=== PATIENT | female | born 1965 | race Caucasian/White ===

== ENCOUNTER → 2017-04-14 | Outpatient (CLI) | payer OTHER ==
--- NOTE | 2017-04-14 09:13 | WOMENS IMAGING REPORT ---
EXAM DESCRIPTION: BILAT SCREENING MAMMO W/CAD COMPLETED DATE/TIME: 04/14/2017 8:50 am REASON FOR STUDY: SCREENING MAMMO Z12.31 ENCNTR SCREEN MAMMOGRAM FOR MALIGNANT NEOPLASM OF BETTINA COMPARISON: 01/01/2014 TECHNIQUE: Standard craniocaudal and mediolateral oblique views of each breast recorded using digita l acquisition. LIMITATIONS: None. FINDINGS: No masses, calcifications or architectural distortion. No areas of suspicion. Read with the assistance of CAD. .[facility] - R2 Cenova Version 1.3 .[facility] - R2 Cenova Version 1.3 .[facility] - R2 Cenova Version 2.4 .[facility] [place] R2 Cenova Version 2.4 .[facility] - R2 Spray Machine Operator Version 9.2 IMPRESSION: NORMAL MAMMOGRAM. BIRADS 1. BREAST DENSITY: d. The breasts are extremely dense, which lowers the sensitivity of mammography. BIRAD: 1 NEGATIVE RECOMMENDATION: ROUTINE SCREENING COMMENT: The patient has been notified of the results by letter per SA requirements. Additional no tification policies are in place for contacting patient with suspicious or incomplete findings. Quality ID #[id number]: The [employer] recommends an annual screening mammogram for women aged 40 years or over. This facility utilizes a reminder system to ensure that all patients receive reminder letters, and/or direct phone calls for appointments. This includes reminders for routine scr eening mammograms, diagnostic mammograms, or other Breast Imaging Interventions when appropriate. Th is patient will be placed in the appropriate reminder system. The [employer] (ACR) has developed recommendations for screening MRI of the breast s in certain patient populations, to be used in conjunction with mammography. Breast MRI surveillanc e may be appropriate for women with more than 20% lifetime risk of developing breast cancer as deter mined by genetic testing, significant family history of the disease, or history of mantle radiation f or Hodgkins Disease. ACR Practice Guidelines 2008. TECHNICAL DOCUMENTATION: FINDING NUMBER: (1) ASSESSMENT: (1) JOB ID: [id number] [employer]- All Rights Reserved
== END ==
LOC: WI 08:22
DX: Z12.31 Encounter for screening mammogram for malignant neoplasm of breast (principal)
CPT/HCPCS: 77067; G0202

== ENCOUNTER 2018-10-04 11:20 | Inpatient (IN) | payer SELFPAY ==
[2018-10-04] MEDS ORDERED: METHYLPREDNISOLONE INJ 125 MG/2 ML SDV IV ONE (11:48)
[2018-10-04] MEDS ORDERED: IPRATROPIUM/ALBUTEROL 0.5-2.5 MG/3 ML AMPUL NEB ONE (11:48)
[2018-10-04] MEDS ORDERED: NORMAL SALINE 1000 ML 1,000 ML IV ONE (11:49)
--- NOTE | 2018-10-04 11:51 | ER Document Report ---
ED Medical Screen (RME) - General Chief Complaint: Chest Pain Stated Complaint: CHEST PAIN Time Seen by Provider: 10/04/18 11:48 [facility]: [facility] [Primary [facility] Provider] - Follow up as needed Notes: Chief complaint: Difficulty breathing History of complain:( obtained from----patient) 53 years old female, with a history of ulcerative colitis, hypertension, diabetes, smoking, presents today with 3-4-day history of generalized body aches and pain feverish coughig and general malaise. No nausea vomiting. PHYSICAL EXAMINATION: GENERAL: Mild to moderate acute distress. HEAD: Atraumatic, normocephalic. EYES: Bilateral eyelid edema left is more than the right ENT: Nares patent, oropharynx clear without exudates. Moist mucous membranes. NECK: Normal range of motion, supple without lymphadenopathy LUNGS: Bilaterally diminished breath sounds could not appreciate any wheezing or rales HEART: Regular rate and rhythm without murmurs ABDOMEN: Soft, nontender, nondistended abdomen. No guarding, no rebound. No masses appreciated. SKIN: Warm, Dry, normal turgor, no rashes or lesions noted. Dictation was performed using [email or web address] voice recognition software TRAVEL OUTSIDE OF THE [place] IN LAST 30 DAYS: No - Related Data Allergies/Adverse Reactions: No Known Allergies Allergy (Verified 10/04/18 11:21) Past Medical History - Past Medical History Cardiac Medical History: Reports: Hx Coronary Artery Disease, Hx Heart Attack Denies: Hx Hypertension Pulmonary Medical History: Denies: Hx Asthma, Hx Bronchitis, Hx COPD, Hx Pneumonia Neurological Medical History: Denies: Hx Cerebrovascular Accident, Hx Seizures Endocrine Medical History: Reports: Hx Diabetes Mellitus Type 1 Musculoskeltal Medical History: Denies Hx Arthritis Past Surgical History: Reports: Hx Hysterectomy - Immunizations Hx Diphtheria, Pertussis, Tetanus Vaccination: Yes Physical Exam - Vital signs Vitals: Temp Pulse Resp BP Pulse Ox 98.3 F 96 18 130/56 H 93 10/04/18 11:35 10/04/18 11:35 10/04/18 11:35 10/04/18 11:35 10/04/18 11:35 Course - Vital Signs Vital signs: Temp Pulse Resp BP Pulse Ox 98.3 F 96 18 130/56 H 93 10/04/18 11:35 10/04/18 11:35 10/04/18 11:35 10/04/18 11:35 10/04/18 11:35 Doctor's Discharge - Discharge Referrals: [facility] [Primary Care Provider] - Follow up as needed
[2018-10-04] MEDS: ALBUTEROL SULFATE 0.083% NEB 2.5 MG/3 ML AMPUL NEB SCH ×2 (11:59→12:53)
[2018-10-04 12:33] LABS: ABSOLUTE EOSINOPHILS # (AUTO) 0.1 10^3/uL (0.0-0.6); ABSOLUTE LYMPHOCYTES (AUTO) 0.8 10^3/uL (0.5-4.7); ABSOLUTE MONOCYTES (AUTO) 0.4 10^3/uL (0.1-1.4); ABSOLUTE NEUT (AUTO) 8.9 10^3/uL (1.7-8.2); BASOPHILS % (AUTO) 0.3 % (0-2); EOSINOPHILS % (AUTO) 0.9 % (0-6); HEMATOCRIT 30.9 % (36.0-47.0); HEMOGLOBIN 10.8 g/dL (12.0-15.5); LYMPHOCYTES % (AUTO) 7.9 % (13-45); MEAN CORPUSCULAR HEMOGLOBIN 33.4 pg (27.0-33.4); MEAN CORPUSCULAR HGB CONC 34.9 g/dL (32.0-36.0); MEAN CORPUSCULAR VOLUME 96 fl (80-97); MONOCYTES % (AUTO) 4.2 % (3-13); PLATELET COUNT 310 10^3/uL (150-450); RED BLOOD COUNT 3.23 10^6/uL (3.72-5.28); RED CELL DISTRIBUTION WIDTH 12.3 % (11.5-14.0); SEGMENTED NEUTROPHILS % (AUTO) 86.7 % (42-78); TOTAL CELLS COUNTED % (AUTO) 100 %; WHITE BLOOD COUNT 10.3 10^3/uL (4.0-10.5)
[2018-10-04 12:47] LABS: A TYPE INFLUENZA AG NEGATIVE (NEGATIVE); B INFLUENZA AG NEGATIVE (NEGATIVE)
[2018-10-04 12:53] LABS: ANION GAP 15 (5-19)
--- NOTE | 2018-10-04 13:03 | RADIOLOGY REPORT (SQ) ---
EXAM DESCRIPTION: CHEST SINGLE VIEW COMPLETED DATE/TIME: 10/04/2018 12:41 pm REASON FOR STUDY: Cough, shortness of breath COMPARISON: AP chest 06/13/2007 EXAM PARAMETERS: NUMBER OF VIEWS: One view. TECHNIQUE: Single frontal radiographic view of the chest acquired. RADIATION DOSE: NA LIMITATIONS: None. FINDINGS: LUNGS AND PLEURA: Patchy left basilar airspace disease, left upper lobe airspace disease w orrisome for pneumonia. Pulmonary infarcts from pulmonary emboli could have this appearance. Right lung clear. No pneumothorax. No pleural effusions. MEDIASTINUM AND HILAR STRUCTURES: No masses. Contour normal. HEART AND VASCULAR STRUCTURES: Heart normal in size. Normal vasculature. BONES: No acute findings. HARDWARE: None in the chest. OTHER: No other significant finding. IMPRESSION: Left upper lobe and left basilar airspace disease, pneumonia versus pulmonary infarcts f rom emboli TECHNICAL DOCUMENTATION: JOB ID: [id number] [employer]- All Rights Reserved Reading location - IP/workstation name: [email or web address]
[2018-10-04 13:14] LABS: ALANINE AMINOTRANSFERASE 12 U/L (9-52); ALBUMIN 4.4 g/dL (3.5-5.0); ALKALINE PHOSPHATASE 132 U/L (38-126); ASPARTATE AMINO TRANSFERASE 23 U/L (14-36); BILIRUBIN,TOTAL 0.6 mg/dL (0.2-1.3); BLOOD UREA NITROGEN 23 mg/dL (7-20); CARBON DIOXIDE 25 mmol/L (22-30); CHLORIDE 93 mmol/L (98-107); GLUCOSE 399 mg/dL (75-110); POTASSIUM 5.2 mmol/L (3.6-5.0); SODIUM 132.6 mmol/L (137-145); TOTAL PROTEIN 7.4 g/dL (6.3-8.2)
[2018-10-04] MEDS ORDERED: CEFTRIAXONE 1 GM/D5W RTU 1 GM/50 ML RTUPB IV ONE (14:50)
--- NOTE | 2018-10-04 16:27 | RADIOLOGY REPORT (SQ) ---
EXAM DESCRIPTION: CTA CHEST COMPLETED DATE/TIME: 10/04/2018 4:02 pm REASON FOR STUDY: Abnormal chest x-ray, possible PEs COMPARISON: Chest films 10/04/2018 TECHNIQUE: CT scan of the chest performed using helical scanning technique with dynamic intravenous contrast injection. Images reviewed with lung, soft tissue and bone windows. Reconstructed coronal and sagittal MPR images reviewed. Additional 3 dimensional post-processing performed to develop Maximal Intensity Projection images (MT P). All images stored on PACS. All CT scanners at this facility use dose modulation, iterative reconstruction, and/or weight based d osing when appropriate to reduce radiation dose to as low as reasonably achievable (ALARA). [facility]: Dose Right [facility]: CareDose [facility]: Dose Right [facility]: Teradose 4D [facility]: [employer] CONTRAST TYPE AND DOSE: contrast/concentration: Isovue 350.00 mg/ml; Total Contrast Delivered: 82.0 ml; Total Saline Delivered: 90.0 ml Contrast bolus optimized for the pulmonary arteries and thoracic aorta. RENAL FUNCTION: GFR > 60. RADIATION DOSE: CT Rad equipment meets quality standard of care and radiation dose reduction techniq ues were employed. CTDIvol: 14.3 - 16.5 mGy. DLP: 551 mGy-cm. . LIMITATIONS: None. FINDINGS: LUNGS AND PLEURA: Dense consolidation is present in the left lower lobe worrisome for pneu monia. There is patchy airspace disease in the right middle lobe and bilateral upper lobes, worrisome for ea rly or developing pneumonia. No pleural effusion. No pneumothorax. AORTA AND GREAT VESSELS: No aneurysm or thoracic aortic dissection. HEART: No pericardial effusion. No significant coronary artery calcifications. PULMONARY ARTERIES: No emboli visualized in the main pulmonary arteries or the segmental branches. HILAR AND MEDIASTINAL STRUCTURES: No identified masses or abnormal nodes. HARDWARE: None in the chest. UPPER ABDOMEN: Small hiatal hernia. Limited exam. THYROID AND OTHER SOFT TISSUES: No masses. No adenopathy. BONES: No acute or significant finding. 3D MIPS: Confirm above findings. OTHER: No other significant finding. IMPRESSION: No CT angio evidence of acute pulmonary emboli. Multifocal pneumonia without pleural effusions COMMENT: Quality ID # [id number]: Final reports with documentation of one or more dose reduction techniques (e.g., Automated exposure control, adjustment of the mA and/or kV according to patient size, use of iterative reconstruction technique) TECHNICAL DOCUMENTATION: JOB ID: [id number] [employer]- All Rights Reserved Reading location - IP/workstation name: [email or web address]
--- NOTE | 2018-10-04 17:06 | ER Document Report ---
ED General - General Chief Complaint: Chest Pain Stated Complaint: CHEST PAIN Time Seen by Provider: 10/04/18 11:48 Primary Care Provider: [facility] [NO LOCAL MD] - Follow up as needed Notes: Patient has had flu symptoms for the past 4 days. She has had some coughing with little congestion produced. She has also experienced some occasional chest pains today. Poor appetite. Denies any history of pulmonary diseases such as asthma or COPD. Thinks she had fever for the past couple of days. Patient also is complaining of some irritation and drainage from her left eye for the past 2 days. It has been running and swollen and reddened. Patient is a cigarette smoker of about a pack a day. Patient is an insulin-dependent diabetic. TRAVEL OUTSIDE OF THE [place] IN LAST 30 DAYS: No - Related Data Allergies/Adverse Reactions: No Known Allergies Allergy (Verified 10/04/18 11:21) Past Medical History - Social History Smoking Status: Current Every Day Smoker Chew tobacco use (# tins/day): No Frequency of alcohol use: None Drug Abuse: None Family History: Reviewed & Not Pertinent Patient has suicidal ideation: No Patient has homicidal ideation: No - Past Medical History Cardiac Medical History: Reports: Hx Coronary Artery Disease, Hx Heart Attack - About 10 years ago, Hx Hypercholesterolemia Pulmonary Medical History: Denies: Hx Asthma, Hx Bronchitis, Hx COPD, Hx Pneumonia Endocrine Medical History: Reports: Hx Diabetes Mellitus Type 1 Renal/ Medical History: Denies: Hx Peritoneal Dialysis GI Medical History: Reports: Hx Ulcer - ulcerative colitis Musculoskeletal Medical History: Denies Hx Arthritis Past Surgical History: Reports: Hx Hysterectomy - Immunizations Hx Diphtheria, Pertussis, Tetanus Vaccination: Yes Review of Systems - Review of Systems Notes: REVIEW OF SYSTEMS: CONSTITUTIONAL : Thinks she had a fever for the past couple of days. EENT: Denies eye, ear, nose or mouth or throat pain or other symptoms. CARDIOVASCULAR: Denies chest pain. RESPIRATORY: Has a cough but denies chest congestion, or shortness of breath. GASTROINTESTINAL: Denies abdominal pain or nausea or vomiting, but has chronic diarrhea from "colitis". GENITOURINARY: Denies difficulty or painful urinating, urinary frequency, blood in urine. MUSCULOSKELETAL: Denies back or neck pain. Denies joint pain or swelling. SKIN: Denies rash or skin lesions. NEUROLOGICAL: Denies LOC or altered mental status. Denies headache. Denies sensory loss or motor deficits. ALL OTHER SYSTEMS REVIEWED AND NEGATIVE. Physical Exam - Vital signs Vitals: Temp Pulse Resp BP Pulse Ox 98.3 F 96 18 130/56 H 93 10/04/18 11:35 10/04/18 11:35 10/04/18 11:35 10/04/18 11:35 10/04/18 11:35 Interpretation: Normal Notes: PHYSICAL EXAMINATION: GENERAL: Well-appearing, in no acute distress. Receiving a nebulizer treatment ordered out front. Vital signs are all essentially normal. O2 sat was 93% in triage. HEAD: Atraumatic, normocephalic. EYES: Pupils equal round and reactive to light, extraocular movements intact. ENT: oropharynx clear without exudates. Moist mucous membranes. NECK: Normal range of motion, supple. LUNGS: Breath sounds clear and equal bilaterally. Very few scattered wheezes heard. HEART: Regular rate and rhythm without murmurs. ABDOMEN: Soft, nontender. No guarding or rebound. No masses. BACK: No tenderness throughout entire back. EXTREMITIES: Normal range of motion without pain. Negative Homans. NEUROLOGICAL: Normal speech, normal gait. Normal sensory, motor, and reflex exams. Awake, alert, and oriented x3. Cranial nerves normal. PSYCH: Normal mood, normal affect. SKIN: Warm, dry, no rashes. Course - Re-evaluation Re-evalutation: 10/04/18 17:08 Chest x-ray shows multifocal infiltrate/pneumonia and possibly pulmonary emboli. CTA scan was ordered which showed no evidence of pulmonary emboli, but confirm the fact that the patient has multifocal pneumonia. Patient has received a gram of Rocephin IV. At the bedside, after the scan and the patient was brought back, her O2 sat is 89-90% on room air. I have spoken with the hospitalist who will admit the patient for further care. - Vital Signs Vital signs: Temp Pulse Resp BP Pulse Ox 98.3 F 102 H 22 H 128/50 H 92 10/04/18 11:35 10/04/18 12:31 10/04/18 15:01 10/04/18 15:01 10/04/18 15:01 - Laboratory Result Diagrams: 10/04/18 12:11 10/04/18 12:11 Laboratory results interpreted by me: 10/04/18 10/04/18 12:11 12:11 RBC 3.23 L Hgb 10.8 L Hct 30.9 L Seg Neutrophils % 86.7 H Lymphocytes % 7.9 L Absolute Neutrophils 8.9 H Sodium 132.6 L Potassium 5.2 H Chloride 93 L BUN 23 H Glucose 399 H Alkaline Phosphatase 132 H Discharge - Discharge Clinical Impression: COPD exacerbation, Multifocal pneumonia, Hypoxia Condition: Stable Disposition: ADMITTED INPATIENT Admitting Provider: Hospitalist Unit Admitted: IMCU [facility]: [facility] [NO LOCAL MD] - Follow up as needed
[2018-10-04] MEDS ORDERED: ONDANSETRON HCL INJ/PF 4 MG/2 ML SDV IV PRN (17:31)
[2018-10-04] MEDS ORDERED: IPRATROPIUM/ALBUTEROL 0.5-2.5 MG/3 ML AMPUL NEB PRN (17:31)
[2018-10-04] MEDS ORDERED: SODIUM POLYSTYRENE SULFONATE 15 GM/60 ML PO ONE (17:37)
[2018-10-04] MEDS ORDERED: DEXTROSE 40% GEL 15 GM TUBE PO PRN ×4 (17:56→20:42)
[2018-10-04] MEDS ORDERED: NICOTINE 14 MG/24 HR PATCH.TD24 TD PRN (17:56)
[2018-10-04] MEDS ORDERED: GLUCAGON,HUMAN RECOMB 1 MG INJ IM PRN ×2 (17:56→20:42)
[2018-10-04] MEDS ORDERED: DEXTROSE 50%-WATER 25 GM/50 ML DISP.SYRIN IV PRN ×4 (17:56→20:42)
--- NOTE | 2018-10-04 17:56 | PDOC H&P ---
History of Present Illness Admission Date/PCP: 10/04/18 17:25 DENNISE EASTMAN History of Present Illness: HUMBERTO SHEFFIELD is a 53 year old female patient presented with 4-day history of cough, shortness of breath congestion and generalized body weakness. She reports the cough is productive of whitish sputum. Patient also endorses fever. No similar illness in her family. Of note the patient is a known case of diabetes. Patient also smokes a pack a day. She is not up-to-date with her flu vaccine. Her initial blood work is unremarkable except for mild hyperkalemia with potassium of 5.2. Her CT scan of the chest is positive left lung multifocal consolidation Which is compatible with pneumonia. Her flu swab is negative for influenza. Past Medical History Cardiac Medical History: Reports: Coronary Artery Disease, Myocardial Infarction - About 10 years ago, Hyperlipidema Denies: Hypertension Pulmonary Medical History: Denies: Asthma, Bronchitis, Chronic Obstructive Pulmonary Disease (COPD), Pneumonia Neurological Medical History: Denies: Seizures Endocrine Medical History: Reports: Diabetes Mellitus Type 1 Musculoskeltal Medical History: Denies: Arthritis Hematology: Reports: Anemia - hx of Past Surgical History Past Surgical History: Reports: Hysterectomy Social History Smoking Status: Current Every Day Smoker Frequency of Alcohol Use: None Drugs: None - Advance Directive Resuscitation Status: Full Code Family History Family History: Reviewed & Not Pertinent, DM - Diabetes is running in her family Parental Family History Reviewed: Yes Children Family History Reviewed: Yes Sibling(s) Family History Reviewed.: Yes Medication/Allergy Home Medications: Insulin Glargine,Hum.rec.anlog [Lantus Insulin 100 Unit/mL] 20 unit SUBCUT QHS 04/18/13 Levothyroxine Sodium [Synthroid 150 Mcg Tablet] 150 mcg PO DAILY 04/18/13 Citalopram Hydrobromide [Celexa] 1 tab PO DAILY 10/03/13 Insulin Aspart [Novolog Flexpen] 1 unit SUBCUT .SLD SCALE 10/03/13 Naproxen 500 mg PO BID 10/03/13 Allergies/Adverse Reactions: No Known Allergies Allergy (Verified 10/04/18 11:21) Review of Systems Constitutional: PRESENT: fever(s) Eyes: PRESENT: other - Redness and swelling of her eyelids on the left side Cardiovascular: PRESENT: as per HPI Respiratory: PRESENT: as per HPI Gastrointestinal: PRESENT: as per HPI Neurological: PRESENT: as per HPI Physical Exam Vital Signs: Temp Pulse Resp BP Pulse Ox 98.3 F 102 H 22 H 128/50 H 92 10/04/18 11:35 10/04/18 12:31 10/04/18 15:01 10/04/18 15:01 10/04/18 15:01 Intake & Output 10/03/18 10/04/18 10/05/18 06:59 06:59 06:59 Intake Total 1050 Balance 1050 Weight 47.9 kg General appearance: PRESENT: mild distress Head exam: PRESENT: atraumatic Eye exam: PRESENT: conjunctival injection Mouth exam: PRESENT: dry mucosa Neck exam: ABSENT: carotid bruit, JVD, lymphadenopathy, thyromegaly Respiratory exam: PRESENT: crackles, rhonchi Cardiovascular exam: PRESENT: RRR. ABSENT: diastolic murmur, rubs, systolic murmur GI/Abdominal exam: PRESENT: normal bowel sounds, soft. ABSENT: distended, guarding, mass, organolmegaly, rebound, tenderness Extremities exam: PRESENT: full ROM. ABSENT: calf tenderness, clubbing, pedal edema Neurological exam: PRESENT: alert, awake, oriented to time, oriented to situation Results Laboratory Results: 10/04/18 12:11 10/04/18 12:11 10/04/18 10/04/18 12:11 12:11 WBC 10.3 RBC 3.23 L Hgb 10.8 L Hct 30.9 L MCV 96 MCH 33.4 MCHC 34.9 RDW 12.3 Plt Count 310 Seg Neutrophils % 86.7 H Lymphocytes % 7.9 L Monocytes % 4.2 Eosinophils % 0.9 Basophils % 0.3 Absolute Neutrophils 8.9 H Absolute Lymphocytes 0.8 Absolute Monocytes 0.4 Absolute Eosinophils 0.1 Absolute Basophils 0.0 Sodium 132.6 L Potassium 5.2 H Chloride 93 L Carbon Dioxide 25 Anion Gap 15 BUN 23 H Creatinine 0.89 Est GFR ( Amer) > 60 Est GFR (Non-Af Amer) > 60 Glucose 399 H Calcium 9.0 Total Bilirubin 0.6 AST 23 ALT 12 Alkaline Phosphatase 132 H Total Protein 7.4 Albumin 4.4 Impressions: Chest X-Ray 10/04/18 11:48 IMPRESSION: Left upper lobe and left basilar airspace disease, pneumonia versus pulmonary infarcts from emboli Chest/Abdomen CTA 10/04/18 14:53 IMPRESSION: No CT angio evidence of acute pulmonary emboli. Multifocal pneumonia without pleural effusions Assessment & Plan - Diagnosis (1) Left lower lobe pneumonia Qualifiers: Aspiration pneumonia type: unspecified Is this a current diagnosis for this admission?: Yes Plan: Based on the chest x-ray, physical examination and history patient has pneumonia and she has been started on Levaquin. (2) Hyperkalemia Is this a current diagnosis for this admission?: Yes Plan: Patient will be started on Kayexalate. And check her BMP in a.m. (3) Bacterial conjunctivitis Is this a current diagnosis for this admission?: Yes Plan: Her left eyelid is swollen and her conjunctiva is injected and she has crests on her eyelash which is compatible with conjunctivitis. Patient has been started on Cipro eyedrops. (4) Tobacco dependence Is this a current diagnosis for this admission?: Yes Plan: Patient is counseled and encouraged to quit smoking. I will put her on nicotine patch. (5) Coronary artery disease Is this a current diagnosis for this admission?: Yes Plan: Stable. - Inpatient Certification Medical Necessity: Need Close Monitoring Due to Risk of Patient Decompensation, Need for IV Antibiotics
[2018-10-04] MEDS: LEVOFLOXACIN 750 MG/D5W RTU 750 MG/150 ML RTUPB IV SCH (18:46)
[2018-10-04] MEDS ORDERED: ENOXAPARIN SODIUM INJ 40 MG/0.4 ML DISP.SYRIN SUBCUT SCH (19:00)
[2018-10-04] MEDS ORDERED: ENOXAPARIN SODIUM INJ 40 MG/0.4 ML DISP.SYRIN SUBCUT ONE (20:00)
[2018-10-04] MEDS ORDERED: INSULIN REG, HUMAN 100 UNIT/ML 3 ML VIAL (PYX) IV ONE (20:43)
[2018-10-04] MEDS: INSULIN LISPRO 100 UNIT/ML 3 ML VIAL SUBCUT SCH (20:49)
[2018-10-04] MEDS: CIPROFLOXACIN HCL 0.3% OPH SOLN 2.5 ML OD SCH (21:05)
--- NOTE | 2018-10-04 22:09 | EKG REPORT ---
SEVERITY:- ABNORMAL ECG - SINUS RHYTHM PROBABLE LEFT ATRIAL ABNORMALITY INFERIOR INFARCT, AGE INDETERMINATE CONSIDER ANTERIOR INFARCT : Confirmed by: Eduarda Yoon MD 04-Oct-2018 22:09:23
[2018-10-05] MEDS ORDERED: INSULIN GLARGINE,HUM.REC.ANLOG 300 UNIT/3 ML INSULN.PEN SUBCUT ONE (00:35)
[2018-10-05] MEDS: INSULIN LISPRO 100 UNIT/ML 3 ML VIAL SUBCUT SCH ×5 (00:41→21:46)
[2018-10-05] MEDS: FAMOTIDINE 20 MG TABLET PO SCH ×3 (00:45→21:19)
[2018-10-05] MEDS ORDERED: INSULIN GLARGINE,HUM.REC.ANLOG 1,000 UNIT/10 ML UNIT SUBCUT ONE (00:45)
[2018-10-05] MEDS: CIPROFLOXACIN HCL 0.3% OPH SOLN 2.5 ML OD SCH ×5 (00:46→23:47)
[2018-10-05 05:46] LABS: ABSOLUTE MONOCYTES (AUTO) 0.8 10^3/uL (0.1-1.4); ABSOLUTE NEUT (AUTO) 10.4 10^3/uL (1.7-8.2); BASOPHILS % (AUTO) 0.1 % (0-2); HEMATOCRIT 25.4 % (36.0-47.0); HEMOGLOBIN 9.1 g/dL (12.0-15.5); LYMPHOCYTES % (AUTO) 7.9 % (13-45); MEAN CORPUSCULAR HGB CONC 35.6 g/dL (32.0-36.0); MEAN CORPUSCULAR VOLUME 93 fl (80-97); MONOCYTES % (AUTO) 6.9 % (3-13); PLATELET COUNT 281 10^3/uL (150-450); RED BLOOD COUNT 2.75 10^6/uL (3.72-5.28); RED CELL DISTRIBUTION WIDTH 12.6 % (11.5-14.0); SEGMENTED NEUTROPHILS % (AUTO) 85.1 % (42-78); TOTAL CELLS COUNTED % (AUTO) 100 %; WHITE BLOOD COUNT 12.3 10^3/uL (4.0-10.5)
[2018-10-05 06:02] LABS: ANION GAP 10 (5-19); BLOOD UREA NITROGEN 26 mg/dL (7-20); CALCIUM 8.4 mg/dL (8.4-10.2); CARBON DIOXIDE 23 mmol/L (22-30); CHLORIDE 100 mmol/L (98-107); CHOLESTEROL 109.89 mg/dL (0-200); GLUCOSE 312 mg/dL (75-110); POTASSIUM 5.2 mmol/L (3.6-5.0); SODIUM 133.1 mmol/L (137-145); TRIGLYCERIDES 43 mg/dL (<150)
[2018-10-05 06:12] LABS: DIRECT LDL 49 mg/dL (<100)
[2018-10-05] MEDS: ENOXAPARIN SODIUM INJ 40 MG/0.4 ML DISP.SYRIN SUBCUT SCH (09:05)
[2018-10-05] MEDS ORDERED: SODIUM POLYSTYRENE SULFONATE 15 GM/60 ML PO ONE ×2 (10:30→12:00)
--- NOTE | 2018-10-05 13:43 | PDOC PROGRESS REPORT ---
Subjective Progress Note for:: 10/05/18 Subjective:: is 53 years old female patient presented with chief complaint of cough and shortness of breath. Her CT scan of the chest is compatible with multifocal pneumonia involving the left lung. Patient has been started on Levaquin. Since she has also underlying COPD patient is being treated with DuoNeb and supplemental oxygen. At admission patient also noticed to have hyperkalemia which is mild with potassium 5.2 for which she is given Kayexalate. He has also some crusting conjunctival injection and I did swelling involving the left eye which is due to conjunctivitis and patient has been on Cipro eyedrops. For tobacco dependence she has been on nicotine transdermal patch. This morning I seen patient sitting up in bed she is awake alert oriented she is in mild distress. She reports that she is relatively feeling better. Reason For Visit: MULTIFOCAL PNEUMONIA Physical Exam Vital Signs: Temp Pulse Resp BP Pulse Ox 98.0 F 116 H 16 114/50 L 93 10/05/18 10:49 10/05/18 11:19 10/05/18 11:19 10/05/18 10:49 10/05/18 11:19 Intake & Output 10/04/18 10/05/18 10/06/18 06:59 06:59 06:59 Intake Total 1200 425 Output Total 500 Balance 700 425 Weight 48.6 kg General appearance: PRESENT: mild distress Head exam: PRESENT: atraumatic Eye exam: PRESENT: conjunctival injection Mouth exam: PRESENT: dry mucosa Neck exam: ABSENT: carotid bruit, JVD, lymphadenopathy, thyromegaly Respiratory exam: PRESENT: clear to auscultation abby. ABSENT: rales, rhonchi, wheezes GI/Abdominal exam: PRESENT: normal bowel sounds, soft. ABSENT: distended, guarding, mass, organolmegaly, rebound, tenderness Neurological exam: PRESENT: alert, awake, oriented to time, oriented to situation Results Laboratory Results: 10/05/18 04:58 10/05/18 04:58 10/04/18 10/04/18 10/05/18 22:30 23:27 04:58 WBC 12.3 H RBC 2.75 L Hgb 9.1 L Hct 25.4 L MCV 93 MCH 33.0 MCHC 35.6 RDW 12.6 Plt Count 281 Seg Neutrophils % 85.1 H Lymphocytes % 7.9 L Monocytes % 6.9 Eosinophils % 0.0 Basophils % 0.1 Absolute Neutrophils 10.4 H Absolute Lymphocytes 1.0 Absolute Monocytes 0.8 Absolute Eosinophils 0.0 Absolute Basophils 0.0 Sodium Potassium Chloride Carbon Dioxide Anion Gap BUN Creatinine Est GFR ( Amer) Est GFR (Non-Af Amer) Glucose Cancelled 563 H* Calcium Triglycerides Cholesterol LDL Cholesterol Direct VLDL Cholesterol HDL Cholesterol 10/05/18 04:58 WBC RBC Hgb Hct MCV MCH MCHC RDW Plt Count Seg Neutrophils % Lymphocytes % Monocytes % Eosinophils % Basophils % Absolute Neutrophils Absolute Lymphocytes Absolute Monocytes Absolute Eosinophils Absolute Basophils Sodium 133.1 L Potassium 5.2 H Chloride 100 Carbon Dioxide 23 Anion Gap 10 BUN 26 H Creatinine 1.06 Est GFR ( Amer) > 60 Est GFR (Non-Af Amer) 54 L Glucose 312 H Calcium 8.4 Triglycerides 43 Cholesterol 109.89 LDL Cholesterol Direct 49 VLDL Cholesterol 9.0 L HDL Cholesterol 51 Impressions: Chest X-Ray 10/04/18 11:48 IMPRESSION: Left upper lobe and left basilar airspace disease, pneumonia versus pulmonary infarcts from emboli Chest/Abdomen CTA 10/04/18 14:53 IMPRESSION: No CT angio evidence of acute pulmonary emboli. Multifocal pneumonia without pleural effusions Assessment & Plan - Diagnosis (1) Left lower lobe pneumonia Qualifiers: Aspiration pneumonia type: unspecified Is this a current diagnosis for this admission?: Yes (2) Hyperkalemia Is this a current diagnosis for this admission?: Yes (3) Bacterial conjunctivitis Is this a current diagnosis for this admission?: Yes (4) Tobacco dependence Is this a current diagnosis for this admission?: Yes (5) Coronary artery disease Is this a current diagnosis for this admission?: Yes (6) Hypothyroidism Qualifiers: Hypothyroidism type: acquired Qualified Code(s): E03.9 - Hypothyroidism, unspecified Is this a current diagnosis for this admission?: Yes Plan: Continue Synthroid (7) Depression Is this a current diagnosis for this admission?: Yes Plan: Continue duloxetine
[2018-10-05] MEDS: GABAPENTIN 300 MG CAPSULE PO SCH ×2 (14:24→21:19)
[2018-10-05] MEDS: SULFASALAZINE 500 MG TABLET.DR PO SCH ×2 (17:40→23:46)
[2018-10-05] MEDS ORDERED: SULFASALAZINE 500 MG PO SCH (18:00)
[2018-10-05] MEDS: LEVOFLOXACIN 750 MG/D5W RTU 750 MG/150 ML RTUPB IV SCH (20:29)
[2018-10-05] MEDS ORDERED: INSULIN REG, HUMAN 100 UNIT/ML 3 ML VIAL (PYX) SUBCUT ONE (20:43)
[2018-10-05] MEDS: QUETIAPINE FUMARATE 25 MG TABLET PO SCH (21:19)
[2018-10-05] MEDS: ATORVASTATIN CALCIUM 20 MG TABLET PO SCH (21:19)
[2018-10-05] MEDS: INSULIN GLARGINE,HUM.REC.ANLOG 300 UNIT/3 ML INSULN.PEN SUBCUT SCH (21:44)
[2018-10-06] MEDS: CIPROFLOXACIN HCL 0.3% OPH SOLN 2.5 ML OD SCH ×3 (05:39→17:15)
[2018-10-06] MEDS: LEVOTHYROXINE SODIUM 0.025 MG TABLET PO SCH (05:39)
[2018-10-06] MEDS: GABAPENTIN 300 MG CAPSULE PO SCH ×3 (05:39→21:12)
[2018-10-06 05:40] LABS: ABSOLUTE EOSINOPHILS # (AUTO) 0.1 10^3/uL (0.0-0.6); ABSOLUTE LYMPHOCYTES (AUTO) 0.8 10^3/uL (0.5-4.7); ABSOLUTE MONOCYTES (AUTO) 0.6 10^3/uL (0.1-1.4); ABSOLUTE NEUT (AUTO) 9.6 10^3/uL (1.7-8.2); BASOPHILS % (AUTO) 0.2 % (0-2); EOSINOPHILS % (AUTO) 0.9 % (0-6); HEMATOCRIT 29.9 % (36.0-47.0); HEMOGLOBIN 10.2 g/dL (12.0-15.5); LYMPHOCYTES % (AUTO) 7.2 % (13-45); MEAN CORPUSCULAR HEMOGLOBIN 32.3 pg (27.0-33.4); MEAN CORPUSCULAR HGB CONC 34.3 g/dL (32.0-36.0); MEAN CORPUSCULAR VOLUME 94 fl (80-97); MONOCYTES % (AUTO) 5.6 % (3-13); PLATELET COUNT 344 10^3/uL (150-450); RED BLOOD COUNT 3.17 10^6/uL (3.72-5.28); SEGMENTED NEUTROPHILS % (AUTO) 86.1 % (42-78); TOTAL CELLS COUNTED % (AUTO) 100 %; WHITE BLOOD COUNT 11.2 10^3/uL (4.0-10.5)
[2018-10-06] MEDS: SULFASALAZINE 500 MG TABLET.DR PO SCH ×3 (05:40→17:15)
[2018-10-06] MEDS: LEVOTHYROXINE SODIUM 0.112 MG TABLET PO SCH (05:41)
[2018-10-06] MEDS ORDERED: (PENDING PHARMACY ID) (Levothyroxine Sodium [Levothyroxine Sodium] 137 MCG) PO SCH (06:00)
[2018-10-06 06:02] LABS: ANION GAP 12 (5-19); BLOOD UREA NITROGEN 21 mg/dL (7-20); CALCIUM 8.6 mg/dL (8.4-10.2); CARBON DIOXIDE 26 mmol/L (22-30); CHLORIDE 102 mmol/L (98-107); GLUCOSE 167 mg/dL (75-110); POTASSIUM 3.3 mmol/L (3.6-5.0); SODIUM 139.7 mmol/L (137-145)
[2018-10-06] MEDS: INSULIN LISPRO 100 UNIT/ML 3 ML VIAL SUBCUT SCH ×4 (09:02→22:16)
[2018-10-06] MEDS: DULOXETINE HCL 30 MG CAPSULE.DR PO SCH (09:15)
[2018-10-06] MEDS: ENOXAPARIN SODIUM INJ 40 MG/0.4 ML DISP.SYRIN SUBCUT SCH (09:15)
[2018-10-06] MEDS: LOSARTAN POTASSIUM 50 MG TABLET PO SCH (09:15)
[2018-10-06] MEDS: FAMOTIDINE 20 MG TABLET PO SCH ×2 (09:15→21:12)
[2018-10-06] MEDS ORDERED: LYSINE 500 MG PO SCH (10:00)
--- NOTE | 2018-10-06 11:09 | RADIOLOGY REPORT (SQ) ---
EXAM DESCRIPTION: CHEST SINGLE VIEW COMPLETED DATE/TIME: 10/06/2018 11:01 am REASON FOR STUDY: Multifocal pneumonia COMPARISON: CT angio chest 10/04/2018 Chest films 10/04/2018, 06/13/2007 EXAM PARAMETERS: NUMBER OF VIEWS: One view. TECHNIQUE: Single frontal radiographic view of the chest acquired. RADIATION DOSE: NA LIMITATIONS: None. FINDINGS: LUNGS AND PLEURA: Persistent minimal airspace disease in the left upper lobe. Persistent dense consolidation worrisome for pneumonia in the left lower lobe. No pleural effusion. No pneumothorax. Right lung clear. MEDIASTINUM AND HILAR STRUCTURES: No masses. Contour normal. HEART AND VASCULAR STRUCTURES: Heart normal in size. Normal vasculature. BONES: No acute findings. HARDWARE: None in the chest. OTHER: No other significant finding. IMPRESSION: Persistent dense consolidation in the left retrocardiac region worrisome for pneumonia. No pleural effusion or pneumothorax. Partial clearing left upper lobe airspace disease compared to 10/04/2018 TECHNICAL DOCUMENTATION: JOB ID: [id number] [employer]- All Rights Reserved Reading location - IP/workstation name: [email or web address]
[2018-10-06] MEDS ORDERED: POTASSIUM CHLORIDE 10 MEQ CAPSULE.ER PO ONE (11:30)
--- NOTE | 2018-10-06 15:38 | PDOC PROGRESS REPORT ---
Subjective Progress Note for:: 10/06/18 Subjective:: I seen patient sitting upright in bed. She is awake alert and oriented. She reports this her shortness of breath is improving. Her repeat chest x-ray reported as persistent retrocardiac consolidation worrisome for pneumonia. We will continue the current antibiotics and repeat the chest x-ray in 48 hours. Reason For Visit: MULTIFOCAL PNEUMONIA Physical Exam Vital Signs: Temp Pulse Resp BP Pulse Ox 97.9 F 89 18 138/60 H 95 10/06/18 11:59 10/06/18 11:59 10/06/18 11:59 10/06/18 11:59 10/06/18 11:59 Intake & Output 10/05/18 10/06/18 10/07/18 06:59 06:59 06:59 Intake Total 1200 1225 Output Total 500 Balance 700 1225 Weight 48.6 kg 48 kg General appearance: PRESENT: no acute distress Head exam: PRESENT: atraumatic, normocephalic Eye exam: PRESENT: conjunctiva pink Mouth exam: PRESENT: moist Neck exam: ABSENT: carotid bruit, JVD, lymphadenopathy, thyromegaly Respiratory exam: PRESENT: crackles - Coarse crepitation over the left lung field Cardiovascular exam: PRESENT: RRR. ABSENT: diastolic murmur, rubs, systolic murmur GI/Abdominal exam: PRESENT: normal bowel sounds, soft. ABSENT: distended, guarding, mass, organolmegaly, rebound, tenderness Extremities exam: PRESENT: full ROM. ABSENT: calf tenderness, clubbing, pedal edema Neurological exam: PRESENT: alert, awake, oriented to time, oriented to situation Results Laboratory Results: 10/06/18 05:15 10/06/18 05:15 10/06/18 10/06/18 05:15 05:15 WBC 11.2 H RBC 3.17 L Hgb 10.2 L Hct 29.9 L MCV 94 MCH 32.3 MCHC 34.3 RDW 13.0 Plt Count 344 Seg Neutrophils % 86.1 H Lymphocytes % 7.2 L Monocytes % 5.6 Eosinophils % 0.9 Basophils % 0.2 Absolute Neutrophils 9.6 H Absolute Lymphocytes 0.8 Absolute Monocytes 0.6 Absolute Eosinophils 0.1 Absolute Basophils 0.0 Sodium 139.7 Potassium 3.3 L Chloride 102 Carbon Dioxide 26 Anion Gap 12 BUN 21 H Creatinine 0.86 Est GFR ( Amer) > 60 Est GFR (Non-Af Amer) > 60 Glucose 167 H Calcium 8.6 Impressions: Chest/Abdomen CTA 10/04/18 14:53 IMPRESSION: No CT angio evidence of acute pulmonary emboli. Multifocal pneumonia without pleural effusions Chest X-Ray 10/06/18 00:00 IMPRESSION: Persistent dense consolidation in the left retrocardiac region worrisome for pneumonia. No pleural effusion or pneumothorax. Partial clearing left upper lobe airspace disease compared to 10/04/2018 Assessment & Plan - Diagnosis (1) Left lower lobe pneumonia Qualifiers: Aspiration pneumonia type: unspecified Is this a current diagnosis for this admission?: Yes Plan: Continue current regimen (2) Hyperkalemia Is this a current diagnosis for this admission?: Yes Plan: It has resolved but the patient rather has mild hypokalemia with potassium of 3.3 which is repleted. (3) Bacterial conjunctivitis Is this a current diagnosis for this admission?: Yes Plan: Improving (4) Tobacco dependence Is this a current diagnosis for this admission?: Yes Plan: Patient is counseled and encouraged to quit smoking. I will put her on nicotine patch. (5) Coronary artery disease Is this a current diagnosis for this admission?: Yes Plan: Stable. (6) Hypothyroidism Qualifiers: Hypothyroidism type: acquired Qualified Code(s): E03.9 - Hypothyroidism, unspecified Is this a current diagnosis for this admission?: Yes Plan: Continue Synthroid (7) Depression Is this a current diagnosis for this admission?: Yes Plan: Continue duloxetine
[2018-10-06] MEDS: LEVOFLOXACIN 750 MG/D5W RTU 750 MG/150 ML RTUPB IV SCH (18:09)
[2018-10-06] MEDS: QUETIAPINE FUMARATE 25 MG TABLET PO SCH (21:11)
[2018-10-06] MEDS: ATORVASTATIN CALCIUM 20 MG TABLET PO SCH (21:12)
[2018-10-07] MEDS: SULFASALAZINE 500 MG TABLET.DR PO SCH ×4 (00:18→17:37)
[2018-10-07] MEDS: CIPROFLOXACIN HCL 0.3% OPH SOLN 2.5 ML OD SCH ×4 (00:18→17:37)
[2018-10-07] MEDS: GABAPENTIN 300 MG CAPSULE PO SCH ×3 (05:09→21:20)
[2018-10-07] MEDS: LEVOTHYROXINE SODIUM 0.025 MG TABLET PO SCH (05:09)
[2018-10-07] MEDS: LEVOTHYROXINE SODIUM 0.112 MG TABLET PO SCH (05:09)
[2018-10-07 05:20] LABS: ANION GAP 7 (5-19); BLOOD UREA NITROGEN 13 mg/dL (7-20); CALCIUM 8.4 mg/dL (8.4-10.2); CARBON DIOXIDE 25 mmol/L (22-30); CHLORIDE 106 mmol/L (98-107); GLUCOSE 117 mg/dL (75-110); SODIUM 138.2 mmol/L (137-145)
[2018-10-07 05:26] LABS: POTASSIUM 4.3 mmol/L (3.6-5.0)
[2018-10-07] MEDS: INSULIN LISPRO 100 UNIT/ML 3 ML VIAL SUBCUT SCH ×4 (07:46→21:23)
[2018-10-07] MEDS: LOSARTAN POTASSIUM 50 MG TABLET PO SCH (09:28)
[2018-10-07] MEDS: ENOXAPARIN SODIUM INJ 40 MG/0.4 ML DISP.SYRIN SUBCUT SCH (09:28)
[2018-10-07] MEDS: FAMOTIDINE 20 MG TABLET PO SCH ×2 (09:28→21:20)
[2018-10-07] MEDS: DULOXETINE HCL 30 MG CAPSULE.DR PO SCH (09:28)
--- NOTE | 2018-10-07 13:02 | PDOC PROGRESS REPORT ---
Subjective Progress Note for:: 10/07/18 Subjective:: I seen patient sitting up in bed surrounded by family members. No new complaint. Reason For Visit: MULTIFOCAL PNEUMONIA Physical Exam Vital Signs: Temp Pulse Resp BP Pulse Ox 98.6 F 81 20 133/59 H 91 L 10/07/18 04:47 10/07/18 07:00 10/07/18 04:47 10/07/18 04:47 10/07/18 04:47 Intake & Output 10/06/18 10/07/18 10/08/18 06:59 06:59 06:59 Intake Total 1225 1150 357 Output Total 0 Balance 1225 1150 357 Weight 48 kg 49.1 kg General appearance: PRESENT: no acute distress Head exam: PRESENT: atraumatic, normocephalic Eye exam: PRESENT: conjunctiva pink Mouth exam: PRESENT: moist Neck exam: ABSENT: carotid bruit, JVD, lymphadenopathy, thyromegaly Respiratory exam: PRESENT: crackles Cardiovascular exam: PRESENT: RRR. ABSENT: diastolic murmur, rubs, systolic murmur GI/Abdominal exam: PRESENT: normal bowel sounds, soft. ABSENT: distended, guarding, mass, organolmegaly, rebound, tenderness Extremities exam: PRESENT: full ROM. ABSENT: calf tenderness, clubbing, pedal edema Neurological exam: PRESENT: alert, awake, oriented to time, oriented to situation Psychiatric exam: PRESENT: normal mood Results Laboratory Results: 10/06/18 05:15 10/07/18 04:44 10/07/18 04:44 Sodium 138.2 Potassium 4.3 D Chloride 106 Carbon Dioxide 25 Anion Gap 7 BUN 13 Creatinine 0.62 Est GFR ( Amer) > 60 Est GFR (Non-Af Amer) > 60 Glucose 117 H Calcium 8.4 Impressions: Chest/Abdomen CTA 10/04/18 14:53 IMPRESSION: No CT angio evidence of acute pulmonary emboli. Multifocal pneumonia without pleural effusions Chest X-Ray 10/06/18 00:00 IMPRESSION: Persistent dense consolidation in the left retrocardiac region worrisome for pneumonia. No pleural effusion or pneumothorax. Partial clearing left upper lobe airspace disease compared to 10/04/2018 Assessment & Plan - Diagnosis (1) Left lower lobe pneumonia Qualifiers: Aspiration pneumonia type: unspecified Is this a current diagnosis for this admission?: Yes Plan: Continue current regimen (2) Hyperkalemia Is this a current diagnosis for this admission?: Yes Plan: It has resolved but the patient rather has mild hypokalemia with potassium of 3.3 which is repleted. (3) Bacterial conjunctivitis Is this a current diagnosis for this admission?: Yes Plan: Improving (4) Tobacco dependence Is this a current diagnosis for this admission?: Yes Plan: Patient is counseled and encouraged to quit smoking. I will put her on nicotine patch. (5) Coronary artery disease Is this a current diagnosis for this admission?: Yes Plan: Stable. (6) Hypothyroidism Qualifiers: Hypothyroidism type: acquired Qualified Code(s): E03.9 - Hypothyroidism, unspecified Is this a current diagnosis for this admission?: Yes Plan: Continue Synthroid (7) Depression Is this a current diagnosis for this admission?: Yes Plan: Continue duloxetine
[2018-10-07] MEDS ORDERED: ERGOCALCIFEROL (VITAMIN D2) 50000 UNIT (1.25 MG) CAPSULE PO SCH (13:34)
[2018-10-07] MEDS: LEVOFLOXACIN 750 MG/D5W RTU 750 MG/150 ML RTUPB IV SCH (18:15)
[2018-10-07] MEDS: QUETIAPINE FUMARATE 25 MG TABLET PO SCH (21:20)
[2018-10-07] MEDS: ATORVASTATIN CALCIUM 20 MG TABLET PO SCH (21:20)
[2018-10-07] MEDS: INSULIN GLARGINE,HUM.REC.ANLOG 300 UNIT/3 ML INSULN.PEN SUBCUT SCH (21:21)
[2018-10-08] MEDS: CIPROFLOXACIN HCL 0.3% OPH SOLN 2.5 ML OD SCH ×2 (00:11→05:26)
[2018-10-08] MEDS: SULFASALAZINE 500 MG TABLET.DR PO SCH ×2 (00:11→05:27)
[2018-10-08] MEDS: LEVOTHYROXINE SODIUM 0.025 MG TABLET PO SCH (05:27)
[2018-10-08] MEDS: GABAPENTIN 300 MG CAPSULE PO SCH (05:27)
[2018-10-08] MEDS: LEVOTHYROXINE SODIUM 0.112 MG TABLET PO SCH (05:27)
--- NOTE | 2018-10-08 09:00 | RADIOLOGY REPORT (SQ) ---
EXAM DESCRIPTION: CHEST SINGLE VIEW COMPLETED DATE/TIME: 10/08/2018 8:47 am REASON FOR STUDY: Multifocal pneumonia COMPARISON: 10/06/2018 EXAM PARAMETERS: NUMBER OF VIEWS: One view. TECHNIQUE: Single frontal radiographic view of the chest acquired. RADIATION DOSE: NA LIMITATIONS: None. FINDINGS: LUNGS AND PLEURA: Persistent unchanged patchy left upper lobe airspace disease and left l ower lobe patchy focal consolidation. The right lung is clear. No pneumothorax or pleural effusion. MEDIASTINUM AND HILAR STRUCTURES: No masses. Contour normal. HEART AND VASCULAR STRUCTURES: Heart normal in size. Normal vasculature. BONES: No acute findings. HARDWARE: None in the chest. OTHER: No other significant finding. IMPRESSION: 1. Persistent right upper lobe patchy airspace disease in right lower lobe patchy conso lidation since the prior study dated 10/06/2018. Considerations for these findings include infiltrate s. TECHNICAL DOCUMENTATION: JOB ID: [id number] [employer]- All Rights Reserved Reading location - IP/workstation name: [email or web address]
[2018-10-08] MEDS: INSULIN LISPRO 100 UNIT/ML 3 ML VIAL SUBCUT SCH (09:21)
[2018-10-08] MEDS: DULOXETINE HCL 30 MG CAPSULE.DR PO SCH (09:36)
[2018-10-08] MEDS: FAMOTIDINE 20 MG TABLET PO SCH (09:36)
[2018-10-08] MEDS: ENOXAPARIN SODIUM INJ 40 MG/0.4 ML DISP.SYRIN SUBCUT SCH (09:37)
[2018-10-08] MEDS: LOSARTAN POTASSIUM 50 MG TABLET PO SCH (09:37)
--- NOTE | 2018-10-08 11:14 | PDOC DISCHARGE SUMMARY ---
General - Admit/Disc Date/PCP Admission Date/Primary Care Provider: 10/04/18 17:25 DENNISE EASTMAN Discharge Date: 10/08/18 - Discharge Diagnosis (1) Left lower lobe pneumonia Is this a current diagnosis for this admission?: Yes (2) Hyperkalemia Is this a current diagnosis for this admission?: Yes (3) Bacterial conjunctivitis Is this a current diagnosis for this admission?: Yes (4) Tobacco dependence Is this a current diagnosis for this admission?: Yes (5) Coronary artery disease Is this a current diagnosis for this admission?: Yes (6) Hypothyroidism Is this a current diagnosis for this admission?: Yes (7) Depression Is this a current diagnosis for this admission?: Yes - Additional Information Resuscitation Status: Full Code Home Medications: Atorvastatin Calcium [Lipitor 20 mg Tablet] 20 mg PO QHS 10/04/18 Duloxetine HCl [Cymbalta] 60 mg PO DAILY 10/04/18 Ergocalciferol (Vitamin D2) [Drisdol 50,000 unit (1.25MG) Capsule] 50,000 unit PO MENENDEZ 10/04/18 Gabapentin [Neurontin 300 mg Capsule] 300 mg PO Q8 10/04/18 Insulin Aspart [Novolog Flexpen] 0 units SQ .PERSLIDINGSCALE 10/04/18 Insulin Glargine,Hum.rec.anlog [Lantus Insulin 100 Unit/mL] 0 units SQ .PERSLIDINGSCALE 10/04/18 Levothyroxine Sodium 137 mcg PO Q6AM 10/04/18 Losartan Potassium [Cozaar 50 mg Tablet] 50 mg PO DAILY 10/04/18 Lysine [l-Lysine] 500 mg PO DAILY 10/04/18 Quetiapine Fumarate [Seroquel 25 mg Tablet] 25 mg PO QHS 10/04/18 Sulfasalazine [Azulfidine] 500 mg PO Q6 10/04/18 History of Present Illness History of Present Illness: HUMBERTO SHEFFIELD is a 53 year old female patient presented with 4-day history of cough, shortness of breath congestion and generalized body weakness. She reports the cough is productive of whitish sputum. Patient also endorses fever. No similar illness in her family. Of note the patient is a known case of diabetes. Patient also smokes a pack a day. She is not up-to-date with her flu vaccine. Her initial blood work is unremarkable except for mild hyperkalemia with potassium of 5.2. Her CT scan of the chest is positive left lung multifocal consolidation Which is compatible with pneumonia. Her flu swab is negative for influenza. Hospital Course Hospital Course: is 53 years old female patient presented with chief complaint of cough and shortness of breath. Her CT scan of the chest is compatible with multifocal pneumonia involving the left lung. Patient has been started on Levaquin. Since she has also underlying COPD patient is being treated with DuoNeb and supplemental oxygen. At admission patient also noticed to have hyperkalemia which is mild with potassium 5.2 for which she is given Kayexalate. She has also some crusting conjunctival injection and eye lid swelling involving the left eye which is due to conjunctivitis and patient has been on Cipro eyedrops. For tobacco dependence she has been on nicotine transdermal patch. Patient reports this her shortness of breath has subsided. This morning I see him sitting up in bed awake alert oriented. She is not in pain or any form of distress vital signs and blood works are within normal limits. Patient counseled and encouraged to quit smoking and she voiced agreement. I will cont inue all her home medication and I will send her home with Levaquin 750 mg p.o. daily for additional 5 days. Physical Exam Vital Signs: Temp Pulse Resp BP Pulse Ox 98.0 F 88 16 138/57 H 97 10/08/18 07:40 10/08/18 07:40 10/08/18 07:40 10/08/18 07:40 10/08/18 07:40 Intake & Output 10/07/18 10/08/18 10/09/18 06:59 06:59 06:59 Intake Total 1150 1227 Output Total 0 Balance 1150 1227 Weight 49.1 kg 50.2 kg Results Laboratory Results: 10/06/18 05:15 10/07/18 04:44 Impressions: Chest/Abdomen CTA 10/04/18 14:53 IMPRESSION: No CT angio evidence of acute pulmonary emboli. Multifocal pneumonia without pleural effusions Chest X-Ray 10/08/18 00:00 IMPRESSION: 1. Persistent right upper lobe patchy airspace disease in right lower lobe patchy consolidation since the prior study dated 10/06/2018. C onsiderations for these findings include infiltrates. Qualifiers - * PATIENT BEING DISCHARGED WITH ANY OF THE FOLLOWING DIAGNOSIS: No
[2018-10-08 11:34] VITALS: BP 135/58
== END 2018-10-08 12:00 | disposition home or self-care (01) | DRG 194 ==
LOC: ER 11:20 → EH 17:25 → 3S 22:50
PROVIDERS: ADMIT Internal Medicine; ATTEND Internal Medicine
DX: J18.9 Pneumonia, unspecified organism (principal); J44.0 Chronic obstructive pulmonary disease with (acute) lower respiratory infection; Z23 Encounter for immunization; J44.9 Chronic obstructive pulmonary disease, unspecified; E03.9 Hypothyroidism, unspecified; F17.200 Nicotine dependence, unspecified, uncomplicated; I25.10 Atherosclerotic heart disease of native coronary artery without angina pectoris; H10.32 Unspecified acute conjunctivitis, left eye; E87.5 Hyperkalemia; I25.2 Old myocardial infarction; E10.9 Type 1 diabetes mellitus without complications; Z90.710 Acquired absence of both cervix and uterus; Z79.4 Long term (current) use of insulin; Z79.890 Hormone replacement therapy
CPT/HCPCS: 36415; 71045; 71275; 80048; 80053; 80061; 82947; 82962; 83036; 85025; 87040; 87804; 90686; 93005; 93010; 99285; J0696; J1650; J1815; J1956; J2930; J3490; J7030; J7620

== ENCOUNTER → 2019-01-21 | Outpatient (CLI) | payer OTHER ==
[2019-01-21 17:18] LABS: APPEARANCE,URINE SLIGHTLY-CLOUDY; BILIRUBIN,URINE NEGATIVE (NEGATIVE); GLUCOSE, URINE 150 mg/dL (NEGATIVE); KETONES,URINE NEGATIVE (NEGATIVE); LEUKOCYTE ESTERASE,URINE NEGATIVE (NEGATIVE); NITRITE,URINE NEGATIVE (NEGATIVE); PROTEIN,URINE NEGATIVE (NEGATIVE); URINE SPECIFIC GRAVITY 1.023; UROBILINOGEN,URINE NEGATIVE mg/dL (<2.0)
[2019-01-21 17:21] LABS: ABSOLUTE EOSINOPHILS # (AUTO) 0.1 10^3/uL (0.0-0.6); ABSOLUTE LYMPHOCYTES (AUTO) 1.4 10^3/uL (0.5-4.7); ABSOLUTE MONOCYTES (AUTO) 0.2 10^3/uL (0.1-1.4); ABSOLUTE NEUT (AUTO) 1.9 10^3/uL (1.7-8.2); BASOPHILS % (AUTO) 1.2 % (0-2); HEMATOCRIT 30.6 % (36.0-47.0); HEMOGLOBIN 10.6 g/dL (12.0-15.5); LYMPHOCYTES % (AUTO) 38.2 % (13-45); MEAN CORPUSCULAR HEMOGLOBIN 34.5 pg (27.0-33.4); MEAN CORPUSCULAR HGB CONC 34.5 g/dL (32.0-36.0); MEAN CORPUSCULAR VOLUME 100 fl (80-97); MONOCYTES % (AUTO) 5.4 % (3-13); PLATELET COUNT 213 10^3/uL (150-450); RED BLOOD COUNT 3.07 10^6/uL (3.72-5.28); RED CELL DISTRIBUTION WIDTH 13.6 % (11.5-14.0); SEGMENTED NEUTROPHILS % (AUTO) 51.2 % (42-78); TOTAL CELLS COUNTED % (AUTO) 100 %; WHITE BLOOD COUNT 3.8 10^3/uL (4.0-10.5)
[2019-01-21 17:22] LABS: COLOR,URINE YELLOW
[2019-01-21 17:45] LABS: ALANINE AMINOTRANSFERASE 37 U/L (9-52); ALKALINE PHOSPHATASE 55 U/L (38-126); ANION GAP 8 (5-19); ASPARTATE AMINO TRANSFERASE 40 U/L (14-36); BILIRUBIN,TOTAL 0.4 mg/dL (0.2-1.3); BLOOD UREA NITROGEN 20 mg/dL (7-20); CALCIUM 10.1 mg/dL (8.4-10.2); CARBON DIOXIDE 26 mmol/L (22-30); CHLORIDE 99 mmol/L (98-107); GLUCOSE 117 mg/dL (75-110); IRON 71.9 ug/dL (37-170); POTASSIUM 4.9 mmol/L (3.6-5.0); SODIUM 133.1 mmol/L (137-145); TOTAL PROTEIN 6.5 g/dL (6.3-8.2); URIC ACID 3.9 mg/dL (2.5-7.5)
== END ==
LOC: CCC 15:30
DX: E11.8 Type 2 diabetes mellitus with unspecified complications (principal); I10 Essential (primary) hypertension; D64.9 Anemia, unspecified
CPT/HCPCS: 36415; 80048; 80076; 81001; 82728; 83036; 83540; 83735; 84443; 84550; 85025

== ENCOUNTER → 2019-08-22 | Outpatient (CLI) | payer OTHER ==
--- NOTE | 2019-08-22 11:30 | RADIOLOGY REPORT (SQ) ---
EXAM DESCRIPTION: LUMBAR SPINE COMPLETE COMPLETED DATE/TIME: 08/22/2019 11:20 am REASON FOR STUDY: LOW BACK PAIN E11.8 TYPE 2 DIABETES MELLITUS WITH UNSPECIFIED COMPLICATION M54.5 LOW BACK PAIN Z77.22 CNTCT W AND EXPSR TO ENVIRON TOBACCO SMOKE (ACUTE) (C COMPARISON: None. NUMBER OF VIEWS: Five views including obliques. TECHNIQUE: AP, lateral, oblique, and sacral radiographic images acquired of the lumbar spine. LIMITATIONS: None. FINDINGS: MINERALIZATION: Normal. SEGMENTATION: Normal. No transitional anatomy. ALIGNMENT: Mild dextroscoliosis. VERTEBRAE: Maintained height. No fracture or worrisome bone lesion. DISCS: Preserved height. No significant osteophytes or end plate irregularity. POSTERIOR ELEMENTS: Pedicles and facets are intact. No pars defect or posterior arch defects. HARDWARE: None in the spine. PARASPINAL SOFT TISSUES: Normal. PELVIS: Intact as visualized. No fractures or worrisome bone lesions. SI joints intact. OTHER: No other significant finding. IMPRESSION: Mild scoliosis. TECHNICAL DOCUMENTATION: JOB ID: [id number] [employer]- All Rights Reserved Reading location - IP/workstation name: [email or web address]
--- NOTE | 2019-08-22 11:32 | RADIOLOGY REPORT (SQ) ---
EXAM DESCRIPTION: CHEST PA/LATERAL COMPLETED DATE/TIME: 08/22/2019 11:20 am REASON FOR STUDY: CNTCT W AND EXPSR TO ENVIRON TOBACCO SMOKE (ACUTE) (CHRONIC) COMPARISON: None. EXAM PARAMETERS: NUMBER OF VIEWS: two views TECHNIQUE: Digital Frontal and Lateral radiographic views of the chest acquired. RADIATION DOSE: NA LIMITATIONS: none FINDINGS: LUNGS AND PLEURA: No opacities, masses or pneumothorax. No pleural effusion. MEDIASTINUM AND HILAR STRUCTURES: No masses or contour abnormalities. HEART AND VASCULAR STRUCTURES: Heart normal size. No evidence for failure. BONES: No acute findings. HARDWARE: None in the chest. OTHER: No other significant finding. IMPRESSION: NO SIGNIFICANT RADIOGRAPHIC FINDING IN THE CHEST. TECHNICAL DOCUMENTATION: JOB ID: [id number] [employer]- All Rights Reserved Reading location - IP/workstation name: [email or web address]
--- NOTE | 2019-08-22 11:35 | RADIOLOGY REPORT (SQ) ---
EXAM DESCRIPTION: SACRUM AND COCCYX COMPLETED DATE/TIME: 08/22/2019 11:20 am REASON FOR STUDY: LOW BACK PAIN E11.8 TYPE 2 DIABETES MELLITUS WITH UNSPECIFIED COMPLICATION M54.5 LOW BACK PAIN Z77.22 CNTCT W AND EXPSR TO ENVIRON TOBACCO SMOKE (ACUTE) (C COMPARISON: None. NUMBER OF VIEWS: Three views. TECHNIQUE: AP, lateral, and tilt views of the sacrum and coccyx. LIMITATIONS: None. FINDINGS: MINERALIZATION: Normal. BONES: No acute fracture or dislocation. No worrisome bone lesions. SOFT TISSUES: No soft tissue swelling. No foreign body. OTHER: No other significant finding. IMPRESSION: NEGATIVE STUDY OF THE SACRUM AND COCCYX. TECHNICAL DOCUMENTATION: JOB ID: [id number] [employer]- All Rights Reserved Reading location - IP/workstation name: [email or web address]
== END ==
LOC: CCC 10:53
DX: E11.8 Type 2 diabetes mellitus with unspecified complications (principal); M54.5 Low back pain; Z77.22 Contact with and (suspected) exposure to environmental tobacco smoke (acute) (chronic)
CPT/HCPCS: 71046; 72110; 72220

== ENCOUNTER → 2019-08-22 | Outpatient (CLI) | payer OTHER ==
--- NOTE | 2019-08-22 18:08 | XCELERA REPORT ---
[address] [address] Tel: [phone] Fax: [phone] Lower Extremity Arterial Evaluation Name: AMYHUMBERTO MEMBRENO Age: 54 yrs Gender: Female : 1965 Patient Status: Outpatient Patient Location: [facility] Study Date: 08/22/2019 03:59 PM Procedure: Ankle brachial indicies performed. Reason For Study: PVD, DIABETES MELLITUS Ordering Physician: [facility] Performed By: Alok Shell Right Side Arterial Evaluation FERNANDA in Posterior Tibial:1.01. Multiphasic waveform. Left Side Arterial Evaluation FERNANDA in Posterior Tibial:0.96. Multiphasic waveform. Interpretation Summary Normal FERNANDA's. Suggesting normal arterial system, no pbstructive disease,within the limitations of this technique. : [facility] > Dandre Méndez
== END ==
LOC: SP 14:00
DX: I73.9 Peripheral vascular disease, unspecified (principal); E11.9 Type 2 diabetes mellitus without complications
CPT/HCPCS: 93922